=== PATIENT | female | born 1930 ===

== ENCOUNTER 2018-03-18 12:17 | Outpatient (CLI) | payer OTHER | END 2018-03-18 12:21 | disposition home or self-care (01) | LOC: SONOGRAMA 12:17 | DX: N60.11 Diffuse cystic mastopathy of right breast (principal); N60.12 Diffuse cystic mastopathy of left breast; N63.11 Unspecified lump in the right breast, upper outer quadrant ==

== ENCOUNTER 2018-05-13 07:14 | Day surgery (SDC) | payer OTHER ==
[~2018-05-13 07:14] MED LIST: COZAAR25 MG PO
== END 2018-05-13 18:30 | disposition home or self-care (01) ==
LOC: CIR.AMB 07:14
DX: D05.11 Intraductal carcinoma in situ of right breast (principal)